=== PATIENT | male | born 1960 | race Caucasian/White ===

== ENCOUNTER 2018-02-28 10:08 | Emergency (ER) | payer OTHER ==
[~2018-02-28 10:08] MED LIST: DIPH-740 PO; IBU600 PO
--- NOTE | 2018-02-28 10:09 | ER Report ---
History and Physical Time Seen By MD: 10:09 HPI/ROS CHIEF COMPLAINT: right ankle pain/swelling HISTORY OF PRESENT ILLNESS: Patient is a 57-year-old male who presents to the emergency department with complaint of right ankle pain some redness and swelling that began 2-3 days ago. Week his right great toe was red and swollen and he thinks he was having an acute gout attack. He is never formally been diagnosed with gout however. Today he presents secondary to pain and swelling to the right ankle. He denies any recent trauma to the affected ankle or foot. There is no history of fever or chills. The patient otherwise feels well. REVIEW OF SYSTEMS: Respiratory: No cough, no dyspnea. Cardiovascular: No chest pain, no palpitations. Gastrointestinal: No vomiting, no abdominal pain. Musculoskeletal: No back pain. Right ankle pain Allergies: Coded Allergies: No Known Drug Allergies (Verified , 02/28/18) Home Meds Reported Medications Ibuprofen (IBUPROFEN) 800 Mg Tablet, 3-4 TAB PO Q8H, TAB 02/28/18 Past Medical/Surgical History Noncontributory Hx Smoking: No Smoking Status: Never Smoker Hx Substance Use Disorder: No Hx Alcohol Use: Yes (SOCIALLY) Constitutional Vital Sign - Last 24 Hours 02/28/18 10:08 Temp 98.1 Pulse 99 Resp 16 B/P (MAP) 143/107 Pulse Ox 93 O2 Delivery Room Air Physical Exam General appearance: alert no distress Right ankle: There is mild swelling laterally to the ankle with some overlying erythema. Area is tender to the touch There is no obvious deformity to the ankle. There is moderate tenderness to the lateral malleolus. Ankle joint is stable and there is no tenderness over the achilles tendon. There is some swelling to the dorsum of the foot with mild overlying erythema Neurologic exam: The patient has normal sensation distal to the injury. Vascular exam: Normal pulses and capillary refill in the foot DIFFERENTIAL DIAGNOSIS: After history and physical exam differential diagnosis was considered for acute gout attack, cellulitis, ankle injury including sprain , fracture, dislocation and soft tissue injury. Medical Decision Making EKG/Imaging Imaging FACILITY: [facility] - [place] PATIENT NAME: Naseem Siegel : 1960 MR: [id number] V: [id number] EXAM DATE: ORDERING PHYSICIAN: CINDY TIERNEY TECHNOLOGIST: Location: [facility] - [place], [place] Patient: Naseem Siegel : 1960 Visit/Account:[id number] Date of cordell: 02/28/2018 Study: ANKLE 3 VIEW MIN RIGHT Indication: Injury Findings: AP lateral and oblique views of the three ankle were obtained. The examination demonstrates no evidence of acute fracture. The distal tibia and fibula are unremarkable. The ankle mortise is intact. The visualized tarsal bones are unremarkable. There is a plantar calcaneal enthesophyte incidentally noted. The visualized soft tissues are unremarkable. IMPRESSION: No significant abnormality identified. Report Dictated By: João Hastings at 02/28/2018 10:53 AM Report E-Signed By: João Hastings at 02/28/2018 10:55 AM WSN:[id number] ED Course/Re-evaluation ED Course 02/28/2018 10:26:50 am suspect patient with acute gout attack. There may be some suggestion of overlying cellulitis as there is erythema that extends up the lateral part of the lower leg. Doubt septic joint at this time given no history of fever and well appearance of the patient. The plan will be oral indomethacin as well as oral Keflex in case there is an overlying cellulitis. We will also x-ray the right ankle. Decision to Disposition Date: Feb 28, 2018 Decision to Disposition Time: 11:12 Depart Departure Latest Vital Signs Vital Signs Date Time Temp Pulse Resp B/P (MAP) Pulse Ox O2 Delivery O2 Flow Rate FiO2 02/28/18 10:08 98.1 99 16 143/107 93 Room Air Impression: Primary Impression: Gout attack Condition: Improved Disposition: HOME OR SELF-CARE New Scripts Cephalexin 500 Mg Tab (KEFLEX 500 MG TAB) 500 Mg Tablet 500 MG PO Q6H, #20 TAB 0 Refills TAKE ONE TABLET BY MOUTH EVERY SIX HOURS Prov: CINDY TIERNEY MD 02/28/18 Indomethacin (INDOMETHACIN) 25 Mg Capsule 50 MG PO Q8H for PAIN, #15 CAPSULE 0 Refills Prov: CINDY TIERNEY MD 02/28/18 Patient Instructions: Gout (DC) Additional Instructions: It is recommended that you take indomethacin with some food to cut down on stomach irritation. If at anytime you develop fever he should be seen and evaluated at an emergency department or by your primary care doctor Problem Qualifiers Primary Impression: Gout attack Gout site: ankle Gout etiology: unspecified cause Laterality: right Qualified Codes: M10.9 - Gout, unspecified CINDY TIERNEY MD Feb 28, 2018 10:09
[2018-02-28] MEDS ORDERED: IBUP800T37 PO (10:14)
[2018-02-28] MEDS ORDERED: INDOMETHACIN 25 MG CAP PO ONE (10:25)
[2018-02-28] MEDS ORDERED: CEPHALEXIN MONO 500 MG CAP PO ONE (10:25)
--- NOTE | 2018-02-28 11:00 | RADIOLOGY IMAGING REPORT ---
FACILITY: [facility] PATIENT NAME: Naseem Siegel : 1960 MR: [id number] V: [id number] EXAM DATE: ORDERING PHYSICIAN: CINDY TIERNEY TECHNOLOGIST: Location: [facility] - [place] Patient: Naseem Siegel : 1960 Visit/Account:[id number] Date of Sevice: 02/28/2018 Study: ANKLE 3 VIEW MIN RIGHT Indication: Injury Findings: AP lateral and oblique views of the three ankle were obtained. The examination demonstrates no evidence of acute fracture. The distal tibia and fibula are unremarka ble. The ankle mortise is intact. The visualized tarsal bones are unremarkable. There is a plantar calcaneal enthesophyte incidentally noted. The visualized soft tissues are unremarkable. IMPRESSION: No significant abnormality identified. Report Dictated By: João Hastings at 02/28/2018 10:53 AM Report E-Signed By: João Hastings at 02/28/2018 10:55 AM WSN:[id number]
[2018-02-28 11:14] VITALS: BP 147/99
[2018-02-28] MEDS ORDERED: INDO-1 PO (11:14)
[2018-02-28] MEDS ORDERED: CEPH500T7 PO (11:14)
== END 2018-02-28 11:19 | disposition home or self-care (01) ==
LOC: ER 10:21
DX: M10.9 Gout, unspecified (principal)
CPT/HCPCS: 99283